=== PATIENT | male | born 1955 | race African-American/Black ===

== ENCOUNTER 2022-05-15 08:07 | Inpatient (IN) | payer MEDICAID, OTHER ==
[~2022-05-15] VITALS: Ht 190.5 cm; Wt 117.7 kg
[2022-05-15 09:04] LABS: BASOPHILS % 0.4 % (0.0-2.0); EOSINOPHILS % 1.4 % (0.0-5.0); HEMATOCRIT. 38.9 % (42.0-52.0); HEMOGLOBIN. 12.9 g/dL (14.0-18.0); LYMPHOCYTES % 7.1 % (20.0-50.0); MEAN CORPUSCULAR HEMOGLOBIN 32.5 pg (28.0-32.0); MEAN CORPUSCULAR VOLUME 98.1 fL (80.0-94.0); MEAN PLATELET VOLUME 10.4 fl (7.4-10.4); MONOCYTES % 5.4 % (2.0-8.0); NEUTROPHILS % 85.7 % (40.0-76.0); PLATELET 187 x1000/uL (130-400); RED BLOOD CELL COUNT 3.96 mill/uL (4.7-6.1); RED CELL DISTRIBUTION WIDTH 14.2 % (11.6-14.6)
[2022-05-15] MEDS ORDERED: AZITHROMYCIN 500MG/250ML 250 ML IV ONE (09:15)
[2022-05-15] MEDS ORDERED: CEFTRIAXONE 1 G PREMIX 50 ML IV ONE (09:15)
[2022-05-15 09:20] LABS: CHLORIDE 110 mEq/L (98-107)
[2022-05-15] MEDS ORDERED: FUROSEMIDE 40MG/4ML VIAL IVP ONE (10:15)
[2022-05-15] MEDS ORDERED: ENALAPRIL 2.5MG/2ML VIAL 2ML IV ONE (10:15)
[2022-05-15] MEDS ORDERED: ENALAPRIL 1.25MG/ML VIAL 1ML IV NR (10:30)
[2022-05-15] MEDS ORDERED: DOCUSATE SODIUM 100MG CAPSULE PO PRN (15:00)
[2022-05-15] MEDS ORDERED: HYDROCODONE/ACETAMINOPHEN 5/325MG TABLET PO PRN (15:00)
[2022-05-15] MEDS ORDERED: LORAZEPAM 0.5MG TABLET PO PRN (15:00)
[2022-05-15] MEDS ORDERED: CLONIDINE 0.1MG TABLET PO PRN (15:00)
[2022-05-15] MEDS ORDERED: ONDANSETRON HCL 4MG/2ML INJ IV PRN (15:00)
[2022-05-15] MEDS ORDERED: ACETAMINOPHEN 325MG TABLET PO PRN ×2 (15:00)
[2022-05-15] MEDS ORDERED: NALOXONE HCL 0.4MG/ML VIAL IV PRN (15:15)
[2022-05-15 17:29] LABS: *AMPHETAMINES SCREEN URINE NEGATIVE (NEGATIVE); *BARBITURATES SCREEN URINE NEGATIVE (NEGATIVE); *BENZODIAZEPINES SCREEN URINE NEGATIVE (NEGATIVE); *COCAINE SCREEN URINE NEGATIVE (NEGATIVE); CANNABINOID URINE SCREEN NEGATIVE (NEGATIVE); METHADONE URINE SCREEN NEGATIVE (NEGATIVE); OPIATES URINE SCREEN NEGATIVE (NEGATIVE); PHENCYCLIDINE URINE SCREEN NEGATIVE (NEGATIVE)
[2022-05-15 21:05] VITALS: BP 135/113
[2022-05-15 21:10] VITALS: BP 135/113
[2022-05-16] VITALS (7 sets, daily range): BP systolic 123–159; BP diastolic 75–105
[2022-05-16] MEDS ORDERED: DULO20CA18 PO (01:59)
[2022-05-16] MEDS ORDERED: ASPI-1406 PO (02:03)
[2022-05-16] MEDS ORDERED: DAPA10TA PO (02:09)
[2022-05-16] MEDS ORDERED: CARV25TA47 PO (02:09)
[2022-05-16] MEDS ORDERED: ATOR40TA70 PO (02:09)
[2022-05-16] MEDS ORDERED: TERA1CAP53 PO (03:07)
[2022-05-16] MEDS ORDERED: LIDO1ADH23 TP (03:07)
[2022-05-16] MEDS ORDERED: FINA5TAB11 PO (03:07)
[2022-05-16] MEDS ORDERED: POTA-79 PO (03:07)
[2022-05-16] MEDS ORDERED: LATA2.5D14 EACHEYE (03:07)
[2022-05-16] MEDS ORDERED: TRIA16.99 BOTHNSTRLS (03:07)
[2022-05-16] MEDS ORDERED: FURO40TA5 PO (03:07)
[2022-05-16] MEDS ORDERED: SACU1TAB7 PO (03:07)
[2022-05-16] MEDS ORDERED: MESA500C5 PO (03:07)
[2022-05-16] MEDS ORDERED: HYDR-4133 PO (03:07)
[2022-05-16] MEDS ORDERED: SPIR25TA6 PO (03:07)
[2022-05-16] MEDS ORDERED: NALO4SPR NS (03:07)
[2022-05-16] MEDS: IPRATROPIUM/ALBUTEROL 0.5-3(2.5)MG/3ML NEB HHN PRN ×2 (03:42→12:09)
[2022-05-16] MEDS ORDERED: DICL100G31 TP (03:44)
[2022-05-16] MEDS ORDERED: BENZ100C86 PO (03:44)
[2022-05-16] MEDS ORDERED: TOPUD PO (03:44)
[2022-05-16 06:55] LABS: BASOPHILS % 0.6 % (0.0-2.0); EOSINOPHILS % 1.7 % (0.0-5.0); HEMATOCRIT. 35.6 % (42.0-52.0); LYMPHOCYTES % 12.5 % (20.0-50.0); MEAN CORPUSCULAR VOLUME 95.5 fL (80.0-94.0); MEAN PLATELET VOLUME 10.4 fl (7.4-10.4); MONOCYTES % 9.3 % (2.0-8.0); NEUTROPHILS % 75.9 % (40.0-76.0); PLATELET 174 x1000/uL (130-400); RED BLOOD CELL COUNT 3.73 mill/uL (4.7-6.1); RED CELL DISTRIBUTION WIDTH 14.3 % (11.6-14.6)
[2022-05-16 07:15] LABS: CHLORIDE 107 mEq/L (98-107)
[2022-05-16] MEDS ORDERED: NON FORMULARY PATIENT HOME MED XX SCH (10:45)
[2022-05-16] MEDS: FUROSEMIDE 40MG/4ML VIAL IVP SCH ×2 (10:59→16:22)
[2022-05-16] MEDS: SPIRONOLACTONE 25MG TABLET PO SCH (11:00)
[2022-05-16] MEDS: POTASSIUM CHLORIDE 20MEQ TABLET SR PO SCH (11:00)
[2022-05-16] MEDS: MESALAMINE 500 MG CAPSULE.ER PO SCH ×2 (12:34→16:23)
[2022-05-16] MEDS: SACUBITRIL/VALSARTAN 49MG/51MG TABLET PO SCH (16:23)
[2022-05-16] MEDS: BENZONATATE 100MG CAPSULE PO PRN (16:23)
[2022-05-16] MEDS: ATORVASTATIN CALCIUM 20MG TABLET PO SCH (20:09)
[2022-05-16] MEDS: CARVEDILOL 3.125 MG TABLET PO SCH (20:10)
[2022-05-17] VITALS: BP 139/97
[2022-05-17 04:00] VITALS: BP 143/89
[2022-05-17] MEDS: BENZONATATE 100MG CAPSULE PO PRN ×2 (06:12→14:47)
[2022-05-17 06:15] LABS: BASOPHILS % 0.6 % (0.0-2.0); EOSINOPHILS % 3.6 % (0.0-5.0); HEMATOCRIT. 35.6 % (42.0-52.0); HEMOGLOBIN. 12.1 g/dL (14.0-18.0); LYMPHOCYTES % 17.3 % (20.0-50.0); MEAN CORPUSCULAR HEMOGLOBIN 32.5 pg (28.0-32.0); MEAN CORPUSCULAR VOLUME 95.6 fL (80.0-94.0); MEAN PLATELET VOLUME 10.6 fl (7.4-10.4); MONOCYTES % 10.9 % (2.0-8.0); NEUTROPHILS % 67.6 % (40.0-76.0); PLATELET 167 x1000/uL (130-400); RED BLOOD CELL COUNT 3.72 mill/uL (4.7-6.1); RED CELL DISTRIBUTION WIDTH 14.2 % (11.6-14.6)
[2022-05-17 07:42] LABS: CHLORIDE 104 mEq/L (98-107)
[2022-05-17] MEDS: FINASTERIDE 5MG TABLET PO SCH (08:18)
[2022-05-17] MEDS: FUROSEMIDE 40MG/4ML VIAL IVP SCH ×2 (08:18→17:47)
[2022-05-17] MEDS: ASPIRIN 81MG TABLET PO SCH (08:18)
[2022-05-17] MEDS: POTASSIUM CHLORIDE 20MEQ TABLET SR PO SCH (08:19)
[2022-05-17] MEDS: CARVEDILOL 3.125 MG TABLET PO SCH ×2 (08:19→21:07)
[2022-05-17] MEDS: SACUBITRIL/VALSARTAN 49MG/51MG TABLET PO SCH ×2 (08:19→17:47)
[2022-05-17] MEDS: SPIRONOLACTONE 25MG TABLET PO SCH (08:19)
[2022-05-17] MEDS: MESALAMINE 500 MG CAPSULE.ER PO SCH ×3 (08:20→17:00)
[2022-05-17 08:21] VITALS: BP 131/82
[2022-05-17 12:00] VITALS: BP 131/90
[2022-05-17] MEDS ORDERED: METOLAZONE 10MG TABLET PO SCH (14:00)
[2022-05-17] MEDS ORDERED: GUAIFENESIN-DM 200MG-20MG/10ML UDC PO PRN (15:00)
[2022-05-17 16:00] VITALS: BP 122/67
[2022-05-17 20:00] VITALS: BP 123/77
[2022-05-17] MEDS: ATORVASTATIN CALCIUM 20MG TABLET PO SCH (21:06)
[2022-05-18] VITALS: BP 131/75
[2022-05-18 04:00] VITALS: BP 130/92
[2022-05-18 06:26] LABS: BASOPHILS % 0.7 % (0.0-2.0); EOSINOPHILS % 4.1 % (0.0-5.0); HEMATOCRIT. 40.9 % (42.0-52.0); HEMOGLOBIN. 13.8 g/dL (14.0-18.0); LYMPHOCYTES % 30.4 % (20.0-50.0); MEAN CORPUSCULAR HEMOGLOBIN 32.2 pg (28.0-32.0); MEAN CORPUSCULAR VOLUME 95.7 fL (80.0-94.0); MEAN PLATELET VOLUME 10.6 fl (7.4-10.4); MONOCYTES % 10.6 % (2.0-8.0); NEUTROPHILS % 54.2 % (40.0-76.0); PLATELET 189 x1000/uL (130-400); RED BLOOD CELL COUNT 4.28 mill/uL (4.7-6.1); RED CELL DISTRIBUTION WIDTH 13.9 % (11.6-14.6)
[2022-05-18] MEDS: BENZONATATE 100MG CAPSULE PO PRN (07:42)
[2022-05-18] MEDS: ASPIRIN 81MG TABLET PO SCH (07:43)
[2022-05-18] MEDS: MESALAMINE 500 MG CAPSULE.ER PO SCH (07:43)
[2022-05-18] MEDS: SPIRONOLACTONE 25MG TABLET PO SCH (07:43)
[2022-05-18] MEDS: FINASTERIDE 5MG TABLET PO SCH (07:43)
[2022-05-18] MEDS: POTASSIUM CHLORIDE 20MEQ TABLET SR PO SCH (07:43)
[2022-05-18] MEDS: CARVEDILOL 3.125 MG TABLET PO SCH (07:43)
[2022-05-18] MEDS: SACUBITRIL/VALSARTAN 49MG/51MG TABLET PO SCH (07:44)
[2022-05-18] MEDS: FUROSEMIDE 40MG/4ML VIAL IVP SCH (07:44)
[2022-05-18 08:01] VITALS: BP 136/94
[2022-05-18 08:49] LABS: CHLORIDE 100 mEq/L (98-107)
[2022-05-18] MEDS ORDERED: COR3 PO (09:26)
[2022-05-18 09:49] VITALS: BP 136/83
[2022-05-18] MEDS ORDERED: GUAI600T44 MT (11:20)
[2022-05-18] MEDS ORDERED: BENZ100C86 MT (11:20)
== END 2022-05-18 12:25 | disposition home or self-care (01) | DRG 194 ==
LOC: ER 08:47 → 3WST 14:25
PROVIDERS: ADMIT Internal Medicine; ATTEND Internal Medicine
DX: I11.0 Hypertensive heart disease with heart failure (principal); J96.00 Acute respiratory failure, unspecified whether with hypoxia or hypercapnia; I50.23 Acute on chronic systolic (congestive) heart failure; I42.9 Cardiomyopathy, unspecified; K50.90 Crohn's disease, unspecified, without complications; Z20.822 Contact with and (suspected) exposure to COVID-19; E78.5 Hyperlipidemia, unspecified; N40.0 Benign prostatic hyperplasia without lower urinary tract symptoms; J18.9 Pneumonia, unspecified organism; J44.0 Chronic obstructive pulmonary disease with (acute) lower respiratory infection; Z96.659 Presence of unspecified artificial knee joint; Z87.891 Personal history of nicotine dependence; Z86.16 Personal history of COVID-19
CPT/HCPCS: 36415; 71045; 80048; 80053; 80061; 80305; 83735; 83880; 84484; 85025; 87426; 87804; 93005; 93306; 94640; 99285; C9803; J0456; J0696; J1940; J3490

== ENCOUNTER 2022-08-02 14:52 | Inpatient (IN) | payer MEDICAID, OTHER ==
[~2022-08-02] VITALS: Ht 185.4 cm; Wt 108.9 kg
[~2022-08-02 14:52] MED LIST: ASPI-1406 PO; ATOR40TA70 PO; BENZ100C86 MT; BENZ100C86 PO; COR3 PO; DAPA10TA PO; DICL100G31 TP; DULO20CA18 PO; FINA5TAB11 PO; FURO40TA5 PO; GUAI600T44 MT; LATA2.5D14 EACHEYE; LIDO1ADH23 TP; MESA500C5 PO; NALO4SPR NS; POTA-79 PO; SACU1TAB7 PO; SPIR25TA6 PO; TERA1CAP53 PO; TOPUD PO; TRIA16.99 BOTHNSTRLS
[2022-08-02 15:37] LABS: BASOPHILS % 0.5 % (0.0-2.0); EOSINOPHILS % 1.5 % (0.0-5.0); HEMATOCRIT. 37.5 % (42.0-52.0); HEMOGLOBIN. 12.5 g/dL (14.0-18.0); LYMPHOCYTES % 14.6 % (20.0-50.0); MEAN CORPUSCULAR HEMOGLOBIN 31.9 pg (28.0-32.0); MEAN CORPUSCULAR VOLUME 95.6 fL (80.0-94.0); MEAN PLATELET VOLUME 9.9 fl (7.4-10.4); MONOCYTES % 6.6 % (2.0-8.0); NEUTROPHILS % 76.8 % (40.0-76.0); PLATELET 224 x1000/uL (130-400); RED BLOOD CELL COUNT 3.92 mill/uL (4.7-6.1); RED CELL DISTRIBUTION WIDTH 14.8 % (11.6-14.6)
[2022-08-02 16:56] LABS: CHLORIDE 110 mEq/L (98-107)
[2022-08-02] MEDS ORDERED: FUROSEMIDE 40MG/4ML VIAL IVP ONE (17:30)
[2022-08-03] VITALS (10 sets, daily range): BP systolic 132–164; BP diastolic 85–106
[2022-08-03] MEDS ORDERED: ACETAMINOPHEN 650MG/20.3ML UDC PO PRN (01:15)
[2022-08-03] MEDS ORDERED: ONDANSETRON HCL 4MG/2ML INJ IV PRN (01:15)
[2022-08-03] MEDS: GUAIFENESIN 200MG/10ML SUGAR FREE UDC PO PRN (01:27)
[2022-08-03] MEDS: SPIRONOLACTONE 25MG TABLET PO SCH ×2 (01:28→08:57)
[2022-08-03] MEDS ORDERED: ACETAMINOPHEN 325MG TABLET PO PRN (05:15)
[2022-08-03 06:24] LABS: BASOPHILS % 0.4 % (0.0-2.0); EOSINOPHILS % 1.7 % (0.0-5.0); HEMATOCRIT. 35.4 % (42.0-52.0); HEMOGLOBIN. 12.3 g/dL (14.0-18.0); LYMPHOCYTES % 8.7 % (20.0-50.0); MEAN CORPUSCULAR HEMOGLOBIN 33.1 pg (28.0-32.0); MEAN CORPUSCULAR VOLUME 94.9 fL (80.0-94.0); MEAN PLATELET VOLUME 10.1 fl (7.4-10.4); MONOCYTES % 5.7 % (2.0-8.0); NEUTROPHILS % 83.5 % (40.0-76.0); PLATELET 198 x1000/uL (130-400); RED BLOOD CELL COUNT 3.73 mill/uL (4.7-6.1); RED CELL DISTRIBUTION WIDTH 14.8 % (11.6-14.6)
[2022-08-03 07:09] LABS: CHLORIDE 108 mEq/L (98-107)
[2022-08-03 07:25] LABS: HDL CHOLESTEROL 46 mg/dL (40-59); LDL CHOLESTEROL 54 mg/dL (5-100)
[2022-08-03 07:36] LABS: *AMPHETAMINES SCREEN URINE NEGATIVE (NEGATIVE); *BARBITURATES SCREEN URINE NEGATIVE (NEGATIVE); *BENZODIAZEPINES SCREEN URINE NEGATIVE (NEGATIVE); *COCAINE SCREEN URINE NEGATIVE (NEGATIVE); CANNABINOID URINE SCREEN NEGATIVE (NEGATIVE); METHADONE URINE SCREEN NEGATIVE (NEGATIVE); OPIATES URINE SCREEN NEGATIVE (NEGATIVE); PHENCYCLIDINE URINE SCREEN NEGATIVE (NEGATIVE)
[2022-08-03 07:46] LABS: HEPATITIS B SURFACE ANTIGEN NEGATIVE
[2022-08-03] MEDS: FUROSEMIDE 40MG/4ML VIAL IVP SCH ×2 (08:56→17:09)
[2022-08-03] MEDS: ASPIRIN 81MG EC TABLET PO SCH (08:56)
[2022-08-03] MEDS: ATORVASTATIN CALCIUM 40MG TABLET PO SCH (08:57)
[2022-08-03] MEDS: ENOXAPARIN 30MG/0.3ML SYR SUBCUT SCH ×2 (08:57→21:18)
[2022-08-03] MEDS: CARVEDILOL 3.125 MG TABLET PO SCH ×2 (08:57→21:20)
[2022-08-03] MEDS: FINASTERIDE 5MG TABLET PO SCH (08:57)
[2022-08-03] MEDS ORDERED: FUROSEMIDE 40MG TABLET PO SCH (09:00)
[2022-08-03] MEDS ORDERED: AZITHROMYCIN 500 MG TABLET PO NR (11:00)
[2022-08-03] MEDS: BENZONATATE 100MG CAPSULE PO SCH ×3 (11:05→21:18)
[2022-08-03] MEDS ORDERED: LOSARTAN POTASSIUM 25 MG TABLET PO SCH (13:15)
[2022-08-03] MEDS: TAMSULOSIN HCL 0.4MG SR CAPSULE PO SCH (15:22)
[2022-08-03] MEDS: DULOXETINE HCL 20MG DR CAPSULE PO SCH (15:22)
[2022-08-03] MEDS: IPRATROPIUM/ALBUTEROL 0.5-3(2.5)MG/3ML NEB HHN PRN (17:05)
[2022-08-03] MEDS: MESALAMINE 500 MG CAPSULE.ER PO SCH ×2 (17:09→21:18)
[2022-08-03] MEDS: TERAZOSIN HCL 1MG CAPSULE PO SCH (21:19)
[2022-08-03] MEDS: LATANOPROST 0.005% OPHTH DROPS 2.5ML EACHEYE SCH (21:20)
[2022-08-04] VITALS (7 sets, daily range): BP systolic 141–158; BP diastolic 84–100
[2022-08-04] MEDS: MESALAMINE 500 MG CAPSULE.ER PO SCH ×3 (06:00→21:40)
[2022-08-04] MEDS: BENZONATATE 100MG CAPSULE PO SCH ×3 (06:02→21:40)
[2022-08-04 06:51] LABS: BASOPHILS % 0.4 % (0.0-2.0); HEMATOCRIT. 33.7 % (42.0-52.0); HEMOGLOBIN. 11.9 g/dL (14.0-18.0); LYMPHOCYTES % 12.6 % (20.0-50.0); MEAN CORPUSCULAR HEMOGLOBIN 33.4 pg (28.0-32.0); MEAN CORPUSCULAR VOLUME 94.3 fL (80.0-94.0); MONOCYTES % 7.9 % (2.0-8.0); NEUTROPHILS % 78.1 % (40.0-76.0); PLATELET 179 x1000/uL (130-400); RED BLOOD CELL COUNT 3.58 mill/uL (4.7-6.1); RED CELL DISTRIBUTION WIDTH 14.4 % (11.6-14.6)
[2022-08-04 06:58] LABS: CHLORIDE 104 mEq/L (98-107)
[2022-08-04] MEDS ORDERED: POTASSIUM CHLORIDE 20MEQ TABLET SR PO SCH (09:00)
[2022-08-04] MEDS: FUROSEMIDE 40MG/4ML VIAL IVP SCH ×2 (09:08→17:33)
[2022-08-04] MEDS: DULOXETINE HCL 20MG DR CAPSULE PO SCH (09:08)
[2022-08-04] MEDS: ASPIRIN 81MG EC TABLET PO SCH (09:08)
[2022-08-04] MEDS: CARVEDILOL 3.125 MG TABLET PO SCH (09:09)
[2022-08-04] MEDS: TAMSULOSIN HCL 0.4MG SR CAPSULE PO SCH (09:09)
[2022-08-04] MEDS: AZITHROMYCIN 250 MG TABLET PO SCH (09:09)
[2022-08-04] MEDS: ATORVASTATIN CALCIUM 40MG TABLET PO SCH (09:10)
[2022-08-04] MEDS: LOSARTAN POTASSIUM 25 MG TABLET PO SCH (09:10)
[2022-08-04] MEDS: FINASTERIDE 5MG TABLET PO SCH (09:10)
[2022-08-04] MEDS: ENOXAPARIN 30MG/0.3ML SYR SUBCUT SCH ×2 (09:13→21:39)
[2022-08-04] MEDS: LIDOCAINE 5% PATCH TOP SCH (09:13)
[2022-08-04] MEDS: SPIRONOLACTONE 25MG TABLET PO SCH (09:19)
[2022-08-04] MEDS: GUAIFENESIN 200MG/10ML SUGAR FREE UDC PO PRN ×2 (12:43→21:39)
[2022-08-04] MEDS: BUDESONIDE 0.5MG/2ML NEB HHN SCH (20:15)
[2022-08-04] MEDS: TERAZOSIN HCL 1MG CAPSULE PO SCH (21:39)
[2022-08-04] MEDS: LATANOPROST 0.005% OPHTH DROPS 2.5ML EACHEYE SCH (21:39)
[2022-08-05] VITALS (9 sets, daily range): BP systolic 133–150; BP diastolic 81–103
[2022-08-05] MEDS: MESALAMINE 500 MG CAPSULE.ER PO SCH ×3 (05:57→21:38)
[2022-08-05] MEDS: BENZONATATE 100MG CAPSULE PO SCH (05:57)
[2022-08-05 06:41] LABS: BASOPHILS % 0.7 % (0.0-2.0); EOSINOPHILS % 3.2 % (0.0-5.0); HEMATOCRIT. 35.7 % (42.0-52.0); HEMOGLOBIN. 12.3 g/dL (14.0-18.0); LYMPHOCYTES % 25.3 % (20.0-50.0); MEAN CORPUSCULAR HEMOGLOBIN 32.6 pg (28.0-32.0); MEAN CORPUSCULAR VOLUME 94.5 fL (80.0-94.0); MEAN PLATELET VOLUME 9.6 fl (7.4-10.4); MONOCYTES % 9.9 % (2.0-8.0); NEUTROPHILS % 60.9 % (40.0-76.0); PLATELET 193 x1000/uL (130-400); RED BLOOD CELL COUNT 3.77 mill/uL (4.7-6.1); RED CELL DISTRIBUTION WIDTH 14.5 % (11.6-14.6)
[2022-08-05 07:07] LABS: CHLORIDE 109 mEq/L (98-107)
[2022-08-05] MEDS: LIDOCAINE 5% PATCH TOP SCH (09:00)
[2022-08-05] MEDS: ENOXAPARIN 30MG/0.3ML SYR SUBCUT SCH ×2 (09:01→21:51)
[2022-08-05] MEDS: ASPIRIN 81MG EC TABLET PO SCH (09:01)
[2022-08-05] MEDS: DULOXETINE HCL 20MG DR CAPSULE PO SCH (09:01)
[2022-08-05] MEDS: FINASTERIDE 5MG TABLET PO SCH (09:02)
[2022-08-05] MEDS: ATORVASTATIN CALCIUM 40MG TABLET PO SCH (09:02)
[2022-08-05] MEDS: CARVEDILOL 3.125 MG TABLET PO SCH ×2 (09:02→21:39)
[2022-08-05] MEDS: FUROSEMIDE 40MG/4ML VIAL IVP SCH ×2 (09:02→17:07)
[2022-08-05] MEDS: AZITHROMYCIN 250 MG TABLET PO SCH (09:02)
[2022-08-05] MEDS: SPIRONOLACTONE 25MG TABLET PO SCH (09:02)
[2022-08-05] MEDS: TAMSULOSIN HCL 0.4MG SR CAPSULE PO SCH (09:02)
[2022-08-05] MEDS: BUDESONIDE 0.5MG/2ML NEB HHN SCH (09:21)
[2022-08-05] MEDS: IPRATROPIUM/ALBUTEROL 0.5-3(2.5)MG/3ML NEB HHN PRN (09:22)
[2022-08-05] MEDS ORDERED: POTASSIUM CHLORIDE 20MEQ TABLET SR PO NR (10:00)
[2022-08-05] MEDS ORDERED: METOLAZONE 10MG TABLET PO NR (10:00)
[2022-08-05] MEDS: GUAIFENESIN 600MG ER TABLET PO SCH ×2 (14:47→21:39)
[2022-08-05] MEDS: IPRATROPIUM/ALBUTEROL 0.5-3(2.5)MG/3ML NEB HHN SCH (17:38)
[2022-08-05] MEDS: TERAZOSIN HCL 1MG CAPSULE PO SCH (21:38)
[2022-08-05] MEDS: LATANOPROST 0.005% OPHTH DROPS 2.5ML EACHEYE SCH (21:50)
[2022-08-06] VITALS (7 sets, daily range): BP systolic 116–156; BP diastolic 76–97
[2022-08-06] MEDS: IPRATROPIUM/ALBUTEROL 0.5-3(2.5)MG/3ML NEB HHN SCH ×4 (00:26→20:41)
[2022-08-06] MEDS: MESALAMINE 500 MG CAPSULE.ER PO SCH ×3 (06:04→21:27)
[2022-08-06 07:07] LABS: BASOPHILS % 0.9 % (0.0-2.0); EOSINOPHILS % 2.5 % (0.0-5.0); HEMATOCRIT. 38.3 % (42.0-52.0); HEMOGLOBIN. 13.2 g/dL (14.0-18.0); LYMPHOCYTES % 30.8 % (20.0-50.0); MEAN CORPUSCULAR HEMOGLOBIN 32.4 pg (28.0-32.0); MEAN CORPUSCULAR VOLUME 94.2 fL (80.0-94.0); MEAN PLATELET VOLUME 9.8 fl (7.4-10.4); NEUTROPHILS % 56.8 % (40.0-76.0); PLATELET 224 x1000/uL (130-400); RED BLOOD CELL COUNT 4.07 mill/uL (4.7-6.1); RED CELL DISTRIBUTION WIDTH 14.3 % (11.6-14.6)
[2022-08-06 07:22] LABS: CHLORIDE 103 mEq/L (98-107)
[2022-08-06] MEDS: BUDESONIDE 0.5MG/2ML NEB HHN SCH ×2 (07:47→20:42)
[2022-08-06] MEDS: ATORVASTATIN CALCIUM 40MG TABLET PO SCH (08:39)
[2022-08-06] MEDS: LOSARTAN POTASSIUM 25 MG TABLET PO SCH (08:40)
[2022-08-06] MEDS: ASPIRIN 81MG EC TABLET PO SCH (08:41)
[2022-08-06] MEDS: AZITHROMYCIN 250 MG TABLET PO SCH (08:42)
[2022-08-06] MEDS: CARVEDILOL 3.125 MG TABLET PO SCH ×2 (08:43→21:26)
[2022-08-06] MEDS: FINASTERIDE 5MG TABLET PO SCH (08:44)
[2022-08-06] MEDS: GUAIFENESIN 600MG ER TABLET PO SCH ×2 (08:44→21:27)
[2022-08-06] MEDS: SPIRONOLACTONE 25MG TABLET PO SCH (08:45)
[2022-08-06] MEDS: ENOXAPARIN 30MG/0.3ML SYR SUBCUT SCH ×2 (08:46→21:27)
[2022-08-06] MEDS: FUROSEMIDE 40MG/4ML VIAL IVP SCH ×2 (08:46→17:26)
[2022-08-06] MEDS: TAMSULOSIN HCL 0.4MG SR CAPSULE PO SCH (08:46)
[2022-08-06] MEDS: LIDOCAINE 5% PATCH TOP SCH (09:00)
[2022-08-06] MEDS: DULOXETINE HCL 20MG DR CAPSULE PO SCH (09:37)
[2022-08-06] MEDS: METHYLPREDNISOLONE SOD SUCC 40 MG/ML VIAL IV SCH ×2 (12:48→21:25)
[2022-08-06] MEDS: TERAZOSIN HCL 1MG CAPSULE PO SCH (21:26)
[2022-08-06] MEDS: GUAIFENESIN 200MG/10ML SUGAR FREE UDC PO PRN (21:38)
[2022-08-06] MEDS: LATANOPROST 0.005% OPHTH DROPS 2.5ML EACHEYE SCH (21:39)
[2022-08-07] VITALS: BP 141/88
[2022-08-07 04:00] VITALS: BP 115/62
[2022-08-07] MEDS: MESALAMINE 500 MG CAPSULE.ER PO SCH (06:09)
[2022-08-07] MEDS: IPRATROPIUM/ALBUTEROL 0.5-3(2.5)MG/3ML NEB HHN SCH (07:42)
[2022-08-07] MEDS: BUDESONIDE 0.5MG/2ML NEB HHN SCH (07:44)
[2022-08-07 08:00] VITALS: BP 135/77
[2022-08-07 08:13] LABS: BASOPHILS % 0.1 % (0.0-2.0); CHLORIDE 100 mEq/L (98-107); HEMOGLOBIN. 14.2 g/dL (14.0-18.0); LYMPHOCYTES % 9.3 % (20.0-50.0); MEAN CORPUSCULAR HEMOGLOBIN 33.1 pg (28.0-32.0); MEAN CORPUSCULAR VOLUME 93.6 fL (80.0-94.0); MEAN PLATELET VOLUME 10.1 fl (7.4-10.4); MONOCYTES % 2.2 % (2.0-8.0); NEUTROPHILS % 88.4 % (40.0-76.0); PLATELET 276 x1000/uL (130-400); RED BLOOD CELL COUNT 4.28 mill/uL (4.7-6.1); RED CELL DISTRIBUTION WIDTH 14.2 % (11.6-14.6)
[2022-08-07] MEDS: ENOXAPARIN 30MG/0.3ML SYR SUBCUT SCH (09:00)
[2022-08-07] MEDS ORDERED: POTASSIUM CHLORIDE 20MEQ TABLET SR PO NR (09:00)
[2022-08-07] MEDS: METHYLPREDNISOLONE SOD SUCC 40 MG/ML VIAL IV SCH (09:17)
[2022-08-07] MEDS: FUROSEMIDE 40MG/4ML VIAL IVP SCH (09:18)
[2022-08-07] MEDS: GUAIFENESIN 600MG ER TABLET PO SCH (09:18)
[2022-08-07] MEDS: TAMSULOSIN HCL 0.4MG SR CAPSULE PO SCH (09:18)
[2022-08-07] MEDS: AZITHROMYCIN 250 MG TABLET PO SCH (09:19)
[2022-08-07] MEDS: ATORVASTATIN CALCIUM 40MG TABLET PO SCH (09:19)
[2022-08-07] MEDS: ASPIRIN 81MG EC TABLET PO SCH (09:19)
[2022-08-07] MEDS: DULOXETINE HCL 20MG DR CAPSULE PO SCH (09:19)
[2022-08-07] MEDS: SPIRONOLACTONE 25MG TABLET PO SCH (09:19)
[2022-08-07] MEDS: CARVEDILOL 3.125 MG TABLET PO SCH (09:19)
[2022-08-07] MEDS: LIDOCAINE 5% PATCH TOP SCH (09:20)
[2022-08-07] MEDS: GUAIFENESIN 200MG/10ML SUGAR FREE UDC PO PRN (09:29)
[2022-08-07] MEDS: FINASTERIDE 5MG TABLET PO SCH (09:32)
[2022-08-07] MEDS: LOSARTAN POTASSIUM 25 MG TABLET PO SCH (09:32)
[2022-08-07] MEDS ORDERED: COR3 PO (10:56)
[2022-08-07] MEDS ORDERED: MED4 MT (10:56)
[2022-08-07] MEDS ORDERED: GUAI600T44 PO (10:56)
[2022-08-07] MEDS ORDERED: BENZ100C86 MT (10:56)
[2022-08-07 11:19] VITALS: BP 135/77
== END 2022-08-07 15:45 | disposition home or self-care (01) | DRG 140 ==
LOC: ER 14:52 → 5EST 19:10 → EDBEDREQ 20:04 → ENRESERV 08-03 00:14
PROVIDERS: ADMIT Internal Medicine; ATTEND Internal Medicine
PROC: 5A09357 Assistance with Respiratory Ventilation, Less than 24 Consecutive Hours, Continuous Positive Airway Pressure (ICD-10-PCS; principal; 2022-08-02)
DX: J44.1 Chronic obstructive pulmonary disease with (acute) exacerbation (principal); J96.00 Acute respiratory failure, unspecified whether with hypoxia or hypercapnia; I50.23 Acute on chronic systolic (congestive) heart failure; I42.0 Dilated cardiomyopathy; I11.0 Hypertensive heart disease with heart failure; K50.90 Crohn's disease, unspecified, without complications; N40.0 Benign prostatic hyperplasia without lower urinary tract symptoms; D53.9 Nutritional anemia, unspecified; Z20.822 Contact with and (suspected) exposure to COVID-19; E78.5 Hyperlipidemia, unspecified; I07.1 Rheumatic tricuspid insufficiency; F17.200 Nicotine dependence, unspecified, uncomplicated; Z96.659 Presence of unspecified artificial knee joint; Z91.199 Patient's noncompliance with other medical treatment and regimen due to unspecified reason; Z83.2 Family history of diseases of the blood and blood-forming organs and certain disorders involving the immune mechanism; Z79.899 Other long term (current) drug therapy
CPT/HCPCS: 36415; 71045; 80048; 80053; 80061; 80305; 83735; 83880; 84145; 84484; 85025; 86038; 86803; 87070; 87340; 87426; 93005; 93306; 94640; 94660; 99291; C9803; J1650; J1940; J2920; J7626

== ENCOUNTER 2023-01-18 17:14 | Emergency (ER) | payer MEDICARE, MEDICAID ==
[~2023-01-18] VITALS: Ht 185.4 cm; Wt 97.0 kg
[~2023-01-18 17:14] MED LIST changes: -BENZ100C86 PO; -DICL100G31 TP; +DICL100G58 TP; +GUAI600T44 PO; +MED4 MT; +POTA-354 PO; -POTA-79 PO
[2023-01-18 17:23] VITALS: O2SAT 99
[2023-01-18 18:11] LABS: BASOPHILS % 0.8 % (0.0-2.0); DIFFERENTIAL COMMENT 0; EOSINOPHILS % 0.9 % (0.0-5.0); HEMATOCRIT. 40.7 % (42.0-52.0); HEMOGLOBIN. 13.4 g/dL (14.0-18.0); LYMPHOCYTES % 19.3 % (20.0-50.0); MEAN CORPUSCULAR HEMOGLOBIN 31.6 pg (28.0-32.0); MEAN CORPUSCULAR VOLUME 95.9 fL (80.0-94.0); MONOCYTES % 12.2 % (2.0-8.0); NEUTROPHILS % 66.8 % (40.0-76.0); PLATELET 202 x1000/uL (130-400); RED BLOOD CELL COUNT 4.25 mill/uL (4.7-6.1); RED CELL DISTRIBUTION WIDTH 15.1 % (11.6-14.6); WHITE BLOOD COUNT 5.2 x1000/uL (4.5-11.0)
[2023-01-18 18:25] LABS: CHLORIDE 114 mEq/L (98-107); INDEX HEMOLYSI 1 (1-3); INDEX ICTERIC 1 (1-4); INDEX LIPEMIC 1 (1-3); POTASSIUM 3.7 mEq/L (3.5-5.1); SODIUM 144 mEq/L (136-145)
[2023-01-18 18:34] LABS: ALANINE AMINOTRANSFERASE 23 IU/L (13-61); ALBUMIN 3.4 g/dL (3.4-5.0); ASPARTATE AMINOTRANSFERASE 20 IU/L (15-37); BILIRUBIN TOTAL 0.6 mg/dL (0.1-1.0); CALCIUM 8.6 mg/dL (8.5-10.1); CARBON DIOXIDE 26 mEq/L (21-32); CREATININE 1.6 mg/dL (0.6-1.3); GLUCOSE 107 mg/dL (70-105); NT PRO B-TYPE NATRIURETIC PEP 8472 pg/mL (5-125); PROTEIN TOTAL 6.5 g/dL (6.0-8.3); TROPONIN I HIGH SENSITIVITY 22 ng/L (<78); UREA NITROGEN BLOOD 17 mg/dL (7-21)
[2023-01-18] MEDS ORDERED: FUROSEMIDE 40MG/4ML VIAL IVP ONE (20:30)
[2023-01-18 21:49] LABS: CLARITY URINE CLEAR (CLEAR); COLOR URINE YELLOW (YELLOW); GLUCOSE URINE 3+ (NEGATIVE); KETONES URINE NEGATIVE (NEGATIVE); LEUKOCYTE ESTERASE URINE NEGATIVE (NEGATIVE); NITRITE URINE NEGATIVE (NEGATIVE); OCCULT BLOOD URINE NEGATIVE (NEGATIVE); PH URINE 6.5 (4.5-8.0); PROTEIN URINE TRACE (NEGATIVE); SPECIFIC GRAVITY URINE 1.015 (1.005-1.030)
[2023-01-18 21:52] LABS: BACTERIA URINE NONE SEEN; RBC URINE NONE SEEN /hpf (0-2); YEAST URINE NONE SEEN
[2023-01-18 22:02] LABS: SQUAMOUS EPITHELIAL CELL URINE RARE /lpf (RARE/1+); WBC URINE 0-2 /hpf (0-2)
[2023-01-19 00:30] VITALS: TEMP 98
[2023-01-19 01:32] VITALS: BP 150/99; PULSE 94; RESP 19
== END 2023-01-19 01:34 | disposition short-term general hospital (02) ==
LOC: ER 18:05
DX: I50.9 Heart failure, unspecified (principal); I11.0 Hypertensive heart disease with heart failure; E78.00 Pure hypercholesterolemia, unspecified; E11.9 Type 2 diabetes mellitus without complications; Z79.899 Other long term (current) drug therapy
CPT/HCPCS: 80053; 81003; 83880; 85025; 84484; 36415; 71045; 93005; 96374; 99285; J1940; Z7610 ×2

== ENCOUNTER 2023-05-07 08:57 | Emergency (ER) | payer MEDICARE, OTHER ==
[~2023-05-07] VITALS: Ht 188 cm; Wt 105.0 kg
[2023-05-07 09:08] VITALS: O2SAT 96
[2023-05-07] MEDS ORDERED: FUROSEMIDE 20MG TABLET PO ONE (09:30)
[2023-05-07] MEDS ORDERED: FUROSEMIDE 40MG TABLET PO NR (09:45)
[2023-05-07 09:54] LABS: ALANINE AMINOTRANSFERASE 12 IU/L (10-49); ALBUMIN 3.4 g/dL (3.2-4.8); ASPARTATE AMINOTRANSFERASE 18 IU/L (<34); CALCIUM 8.3 mg/dL (8.7-10.4); CARBON DIOXIDE 24 mEq/L (21-32); CHLORIDE 106 mEq/L (98-107); CREATININE 1.3 mg/dL (0.6-1.3); GLUCOSE 169 mg/dL (70-105); POTASSIUM 4.1 mEq/L (3.5-5.1); PROTEIN TOTAL 5.6 g/dL (6.0-8.3); SODIUM 137 mEq/L (136-145); TROPONIN I HIGH SENSITIVITY 49 ng/L (3.0-53); UREA NITROGEN BLOOD 23 mg/dL (9-23)
[2023-05-07 09:58] LABS: BASOPHILS % 0.5 % (0.0-2.0); EOSINOPHILS % 0.7 % (0.0-5.0); HEMATOCRIT. 39.1 % (42.0-52.0); HEMOGLOBIN. 12.7 g/dL (14.0-18.0); LYMPHOCYTES % 7.2 % (20.0-50.0); MEAN CORPUSCULAR HEMOGLOBIN 32.1 pg (28.0-32.0); MEAN CORPUSCULAR HGB CONC 32.5 g/dL (31.0-37.0); MEAN CORPUSCULAR VOLUME 98.7 fL (80.0-94.0); MEAN PLATELET VOLUME 9.9 fl (7.4-10.4); MONOCYTES % 6.5 % (2.0-8.0); NEUTROPHILS % 85.1 % (40.0-76.0); PLATELET 153 x1000/uL (130-400); RED BLOOD CELL COUNT 3.96 mill/uL (4.7-6.1); RED CELL DISTRIBUTION WIDTH 14.4 % (11.6-14.6); WHITE BLOOD COUNT 10.8 x1000/uL (4.5-11.0)
[2023-05-07] MEDS ORDERED: ACETAMINOPHEN 325MG TABLET PO ONE (12:45)
[2023-05-07 12:59] LABS: CLARITY URINE CLEAR (CLEAR); COLOR URINE YELLOW (YELLOW); GLUCOSE URINE NEGATIVE (NEGATIVE); KETONES URINE NEGATIVE (NEGATIVE); LEUKOCYTE ESTERASE URINE NEGATIVE (NEGATIVE); NITRITE URINE NEGATIVE (NEGATIVE); OCCULT BLOOD URINE NEGATIVE (NEGATIVE); PROTEIN URINE 2+ (NEGATIVE); SPECIFIC GRAVITY URINE 1.024 (1.005-1.030)
[2023-05-07 13:40] LABS: SQUAMOUS EPITHELIAL CELL URINE RARE /lpf (RARE/1+)
[2023-05-07 13:41] LABS: BACTERIA URINE TRACE; RBC URINE 0-2 /hpf (0-2); WBC URINE 0-2 /hpf (0-2)
[2023-05-07 16:56] VITALS: BP 143/97; PULSE 92; RESP 16; TEMP 98
== END 2023-05-07 16:57 | disposition short-term general hospital (02) ==
LOC: ER 10:12 → CANBEDREQ 13:53 → ER 16:57
DX: R06.02 Shortness of breath (principal); I11.0 Hypertensive heart disease with heart failure; I50.9 Heart failure, unspecified; Z98.890 Other specified postprocedural states
CPT/HCPCS: 36415; 71045; 80053; 81003; 82962; 83880; 84484; 85025; 93005; 99285